=== PATIENT | male | born 1960 | race Hispanic/Latino ===

== ENCOUNTER 2017-08-18 07:21 | Day surgery (SDC) | payer MEDICARE ==
[2017-08-14 10:48] VITALS: BP 123/62
[2017-08-14 11:15] LABS: BASOPHILS % (AUTO) 0.7 % (0.0-5.0); EOSINOPHILS % (AUTO) 4.6 % (0.0-8.0); HEMATOCRIT 42.3 % (42-54); LYMPHOCYTES % (AUTO) 22.8 % (21.0-51.0); MEAN CORPUSCULAR HEMOGLOBIN 33.2 pg (27.0-33.0); MEAN CORPUSCULAR HGB CONC 35.1 g/dL (32.0-36.0); MEAN CORPUSCULAR VOLUME 94.5 fL (79-99); MONOCYTES % (AUTO) 9.7 % (3.0-13.0); NEUTROPHILS % (AUTO) 62.2 % (40.0-77.0); PLATELET COUNT (AUTO) 74 K/uL (130-400); RED BLOOD CELL COUNT(AUTO) 4.48 MIL/uL (4.50-6.20); RED CELL DISTRIBUTION WIDTH 13.7 % (11.0-15.5); WHITE BLOOD COUNT (AUTO) 5.7 K/uL (4.8-10.8)
[2017-08-14 11:17] LABS: APPEARANCE,URINE Clear (CLEAR); BILIRUBIN,URINE Small (NEGATIVE); COLOR,URINE Dark Yellow (YELLOW); GLUCOSE, URINE (UA) Negative (NEGATIVE); KETONES,URINE Negative (NEGATIVE); LEUKOCYTE ESTERASE ,URINE Trace (NEGATIVE); NITRATE,URINE Negative (NEGATIVE); OCCULT BLOOD,URINE Negative (NEGATIVE); PROTEIN,URINE POS 2+ (NEGATIVE)
[2017-08-14 11:28] LABS: RBC,URINE 0-1 /HPF (0-1); WBC,URINE 0-1 /HPF (0-1)
[2017-08-14 11:29] LABS: BACTERIA,URINE Few /HPF (None Seen); MUCUS,URINE Few LPF (None Seen); SQUAMOUS EPITHELIAL CELL,UR 0-2 /HPF (0-2)
[2017-08-14 11:37] LABS: CREATININE 1.3 mg/dL (0.5-1.5); POTASSIUM 4.5 mmol/L (3.5-5.1)
[2017-08-14 11:43] LABS: INR 1.15 (0.85-1.15); PARTIAL THROMBOPLASTIN TIME 30.4 SEC (26.3-35.5)
[2017-08-18] VITALS (10 sets, daily range): BP systolic 130–144; BP diastolic 42–67
[~2017-08-18] VITALS: Ht 184.2 cm; Wt 100.6 kg
[~2017-08-18 07:21] MED LIST: ATOR40TA71 PO; BACL10TA PO; CARV3.12 PO; LEVE500T19 PO; NIFE30TA98 PO; OXCA300T PO; SPIR25TA6 PO
[2017-08-18 08:19] LABS: EOSINOPHILS % (AUTO) 4.3 % (0.0-8.0); HEMATOCRIT 42.9 % (42-54); MEAN CORPUSCULAR HEMOGLOBIN 32.7 pg (27.0-33.0); MEAN CORPUSCULAR HGB CONC 34.1 g/dL (32.0-36.0); MEAN CORPUSCULAR VOLUME 95.7 fL (79-99); MONOCYTES % (AUTO) 8.8 % (3.0-13.0); NEUTROPHILS % (AUTO) 61.9 % (40.0-77.0); NUCLEATED RED BLOOD CELLS 0.1 % (0.0-0.19); PLATELET COUNT (AUTO) 62 K/uL (130-400); RED BLOOD CELL COUNT(AUTO) 4.49 MIL/uL (4.50-6.20); RED CELL DISTRIBUTION WIDTH 13.5 % (11.0-15.5); WHITE BLOOD COUNT (AUTO) 5.2 K/uL (4.8-10.8)
[2017-08-18] MEDS ORDERED: SODIUM CHLORIDE 0.9% 1000ML 1,000 ML IV ONE (09:07)
[2017-08-18] MEDS ORDERED: HEPARIN SODIUM 1000UNIT/ML 10ML VIAL ONE (10:14)
[2017-08-18] MEDS ORDERED: ISOVUE-370 50ML VIAL IV ONE (10:14)
[2017-08-18] MEDS ORDERED: NITROGLYCERIN 5 MG/ML 10 ML VIAL IV ONE (10:14)
[2017-08-18] MEDS ORDERED: LIDOCAINE HCL 2% 20ML ONE (10:15)
[2017-08-18] MEDS ORDERED: IOPAMIDOL-370 75 ML VIAL IV ONE (10:15)
[2017-08-18] MEDS ORDERED: SODIUM CHLORIDE 0.9% 1000ML 1,000 ML IV SCH (10:57)
[2017-08-18] MEDS ORDERED: METOPROLOL TARTRATE 1 MG/ML 5ML VIAL IV PRN (11:00)
[2017-08-18] MEDS ORDERED: HYDRALAZINE HCL 20 MG/ML VIAL IV PRN (11:00)
[2017-08-18] MEDS ORDERED: DEXTROSE 50%-WATER 50 ML DISP.SYRIN IV PRN (11:00)
[2017-08-18] MEDS ORDERED: NITROGLYCERIN 0.4 MG SL TAB SL PRN (11:00)
[2017-08-18] MEDS ORDERED: GLUCAGON 1MG KIT 1 MG ML IM PRN (11:00)
== END 2017-08-18 15:12 | disposition home or self-care (01) ==
LOC: DAH 07:21
PROVIDERS: ATTEND Internal Medicine Cardiovascular Disease
DX: I25.118 Atherosclerotic heart disease of native coronary artery with other forms of angina pectoris (principal); I11.0 Hypertensive heart disease with heart failure; I50.32 Chronic diastolic (congestive) heart failure; G40.909 Epilepsy, unspecified, not intractable, without status epilepticus; Z68.32 Body mass index [BMI] 32.0-32.9, adult; Z98.890 Other specified postprocedural states; Z79.899 Other long term (current) drug therapy; I35.1 Nonrheumatic aortic (valve) insufficiency; I87.2 Venous insufficiency (chronic) (peripheral); R00.1 Bradycardia, unspecified; I45.19 Other right bundle-branch block
CPT/HCPCS: 36415 ×2; 71045; 80048; 81001; 85025 ×2; 85610; 85730; 93005; 93458; A4606; C1760; C1894 ×2; J1644; J3490 ×2; J7030; Q9967 ×2